=== PATIENT | female | born 1960 | race Hispanic/Latino ===

== ENCOUNTER → 2024-01-08 | Day surgery (SDC) | payer OTHER ==
[~2024-01-08] MED LIST: BRAIN MIGHT-DH1 EACH PO; CALCIUM CARBON500 MG PO; FISH OIL 1,2001 EACH PO; LEXAPRO20 MG PO; LORATADINE10 MG PO; PROPOFOL IV EMULSION 10 MG/ML 20 ML VIAL ONE; VIT D3 PO
[2024-01-08] MEDS: LACTATED RINGER'S 1,000 ML ONE (14:10)
[2024-01-08 17:05] VITALS: BP 128/88; PULSE 84; RESP 16; TEMP 97.5; O2SAT 100
== END | disposition home or self-care (01) ==
LOC: OR 01:13
PROVIDERS: ATTEND Internal Medicine Gastroenterology
DX: Z12.11 Encounter for screening for malignant neoplasm of colon (principal); K63.5 Polyp of colon; K64.8 Other hemorrhoids; E78.1 Pure hyperglyceridemia; J30.1 Allergic rhinitis due to pollen; E73.9 Lactose intolerance, unspecified; Z71.3 Dietary counseling and surveillance; Z68.33 Body mass index [BMI] 33.0-33.9, adult; R00.1 Bradycardia, unspecified; Z01.810 Encounter for preprocedural cardiovascular examination; Z79.899 Other long term (current) drug therapy
CPT/HCPCS: 45380; 93005; J2704; J7121; 45378; 45385